=== PATIENT | female | born 2000 | race African-American/Black ===

== ENCOUNTER 2022-09-12 08:41 | Emergency (ER) | payer BC, SELFPAY ==
--- NOTE | 2022-09-12 08:54 | ED.FEMALEGU ---
HPI - Female Genitourinary General Chief complaint: Urogenital-Female Stated complaint: STD Time Seen by Provider: 09/12/22 09:07 Source: patient, RN notes reviewed and old records reviewed Mode of arrival: ambulatory Limitations: no limitations History of Present Illness HPI Narrative: 22 year old female who presents to [facility] care with concern for exposure to Chlamydia from significant other. Patient states that she has not had any vaginal discharge, pain or itching, has noted some odor at times. Patient reports that her boyfriend informed her that he tested positive for Chlamydia. Patient reports that she has had unprotected intercourse with him since March. Patient states she has had previous chlamydia in May of 2021 and was treated MD elicited complaint: possible STD Pertinent past history: STI/STD Vaginal discharge: none Vaginal bleeding: none Treatment prior to arrival: none Sexual activity: Yes Related Data Allergies Allergy/AdvReac Type Severity Reaction Status Date / Time No Known Allergies Allergy Verified 09/12/22 09:12 Review of Systems Review of Systems: CONSTITUTIONAL: Denies fever, chills, or sweats. CARDIOVASCULAR: Denies chest pain, palpitations, or edema. RESPIRATORY: Denies cough or dyspnea. GASTROINTESTINAL: Denies abdominal pain, nausea, vomiting, or diarrhea. GENITOURINARY: Denies any dysuria, frequency, urgency. Denies flank pain or hematuria.Denies any vaginal drainage or itching SKIN: Denies rash or itching. MUSCULOSKELETAL: Denies back pain or myalgia. Denies CVA tenderness NEUROLOGIC: Denies headache All systems reviewed & are unremarkable except as noted in HPI and below PMFSH Past Medical History Medical History (Updated 09/12/22 @ 12:22 by Judith Santizo NP) Sexually transmitted disease (STD) Social History Social History (Updated 09/12/22 @ 12:23 by Judith Santizo NP) Smoking status: Never smoker Alcohol intake: current Substance use type: does not use Gender identity (if verbalized by the patient): Female Comments At time of signature, agree with nursing past medical, surgical, social and family history. There is no relevant family history pertinent to the presenting complaint Exam Narrative: GENERAL: Well-appearing, well-nourished, and in no acute distress. HEAD: Normocephalic, atraumatic. NECK: Supple.no lymphadenopathy CHEST: Clear to auscultation. No respiratory distress.SAO2 100% on room air HEART: Regular rate and rhythm. No murmur heard. Normal peripheral pulses. ABDOMEN: Soft, nontender, nondistended, normal active bowel sounds. No CVA tenderness denies any difficulty with urination or any vaginal discharge EXTREMITIES: Normal range of motion. No edema. SKIN: Warm, dry, no rash. NEURO: No focal deficits. Alert and oriented x3. Course Course Emergency Course: Patient is aware of diagnosis, understands and agrees to treatment plan.? Anticipatory guidance given.? Patient agrees to follow-up as directed and is aware of reasons to seek care at the emergency department. Portions of this record may have been created with voice recognition software Level of Care: Express Care Visit Vital Signs Vital signs: Vital Signs Temperature 37.4 C 09/12/22 08:59 Pulse Rate 70 09/12/22 08:59 Respiratory Rate 16 09/12/22 08:59 Blood Pressure 107/72 09/12/22 08:59 Pulse Oximetry 100 09/12/22 08:59 Oxygen Delivery Room Air 09/12/22 08:59 Temperature 37.4 C 09/12/22 08:59 Pulse Rate 70 09/12/22 08:59 Respiratory Rate 16 09/12/22 08:59 Blood Pressure 107/72 09/12/22 08:59 Pulse Oximetry 100 09/12/22 08:59 Oxygen Delivery Room Air 09/12/22 08:59 MDM - Female Genitourinary MDM Narrative Medical decision making narrative: Patient is non-toxic appearing and is in no distress.? Patient is appropriate for outpatient treatment and follow-up. Differential Diagnosis Differential diagnosis: Likely bacterial vagi
[2022-09-12 08:59] VITALS: BP 107/72; PULSE 70; RESP 16; TEMP 37.4; O2SAT 100
== END 2022-09-12 09:30 | disposition home or self-care (01) ==
PROVIDERS: Emergency Provider Registered Nurse
DX: Z11.3 Encounter for screening for infections with a predominantly sexual mode of transmission (principal)
CPT/HCPCS: 87491; 87591; 87661; 99204; G0463